=== PATIENT | female | born 1965 | race Caucasian/White ===

== ENCOUNTER 2016-07-09 17:56 | Emergency (ER) | payer MEDICARE ==
--- NOTE | 2016-07-10 12:15 | ER ---
ADMIT: 07/09/2016 RM/LOC: ER [facility] MR#: [id number] [address] ANASTASIYA DARNELL [address] [place] [id number] Emergency Room Report SEX: F AGE: 51 : 1965 DATE: 07/09/2016 A 51-year-old female, slipped and fell landing on her outstretched left hand, brought to the Emergency Department by squad with left wrist pain. See T- sheet for history and physical. X-rays revealed an impacted fracture of the distal left radius. At the time of this dictation, PA is going to reduce the fracture by placing in traps. She will be discharged with a prescription for [place] and Zofran, instructed to follow up with Dr. Dumont this coming week. The fracture will also be splinted per the PA. Samir Barreto MD/ leslie JOB #: [id number] CC: Samir Barreto MD, Attending Physician Hakeem Bahena MD, Family Physician
--- NOTE | 2016-07-20 17:46 | ER ---
ADMIT: 07/09/2016 RM/LOC: ER [facility] MR#: [id number] [address] [address] ANASTASIYA DARNELL [address] [place] [id number] Emergency Room Report SEX: F AGE: 51 : 1965 DATE: 07/09/2016 ADDENDUM: This patient was initially seen by Dr. Barreto and turned over to me. She fell and had a fracture of her left radius and ulna. I placed it in traps after doing a hematoma block with bupivacaine with epi. I had good alignment. She was placed in an OCL splint. However, during reducing her left wrist, she started to note that she was having pain in her right shoulder. X-ray of her shoulder showed a humeral head fracture. She was also put in a sling in both the right and left upper extremities. I wrote a prescription for Percocet and Zofran, and she is to follow up with Dr. Miller on Tuesday. Please see my T-sheet. GUMARO Vines / Samir Barreto MD / dignal JOB #: [id number] CC: Samir Barreto MD, Attending Physician Hakeem Bahena MD, Family Physician
== END 2016-07-09 20:55 | disposition home or self-care (01) ==
LOC: ER 17:56
PROC: 0PSLXZZ Reposition Left Ulna, External Approach (ICD-10-PCS; principal; 2016-07-09)
PROC: 0PSJXZZ Reposition Left Radius, External Approach (ICD-10-PCS; principal; 2016-07-09)
DX: S52.502A Unspecified fracture of the lower end of left radius, initial encounter for closed fracture (principal); S52.602A Unspecified fracture of lower end of left ulna, initial encounter for closed fracture; I10 Essential (primary) hypertension; F41.9 Anxiety disorder, unspecified; Z79.899 Other long term (current) drug therapy; W01.0XXA Fall on same level from slipping, tripping and stumbling without subsequent striking against object, initial encounter; Y92.009 Unspecified place in unspecified non-institutional (private) residence as the place of occurrence of the external cause

== ENCOUNTER 2016-07-10 11:13 | Emergency (ER) | payer MEDICARE ==
--- NOTE | 2016-07-31 08:03 | ER ---
ADMIT: 07/10/2016 RM/LOC: ER [facility] MR#: [id number] [address] [address] ANASTASIYA DARNELL [address] [place] [phone] Emergency Room Report SEX: F AGE: 51 : 1965 DATE: 07/10/2016 ADDENDUM: CHIEF COMPLAINT: Urinary hesitancy and retention. HISTORY OF PRESENT ILLNESS: This is a 51-year-old, who is having these symptoms going on for the last couple months. She is worried about her kidney function, so she came into ER. Urine and BMP were collected. Urine is normal, no signs of infection. This was done by a UA cath. Her BMP was normal except for potassium slightly up at 3.6. Her bicarb is slightly low at 21. I did encourage that she needs to really push fluids, try to keep herself hydrated. CLINICAL IMPRESSION: Urinary retention/hesitancy. DISPOSITION: Stable at discharge and will follow up as needed if symptoms continue. GUMARO Lawson / Samir Barreto MD / dignal JOB #: [id number] CC: Samir Barreto MD, Attending Physician
== END 2016-07-10 13:15 | disposition home or self-care (01) ==
LOC: ER 11:13
DX: R33.9 Retention of urine, unspecified (principal); R39.11 Hesitancy of micturition; I10 Essential (primary) hypertension; F41.9 Anxiety disorder, unspecified; F32.9 Major depressive disorder, single episode, unspecified; Z98.890 Other specified postprocedural states; Z79.899 Other long term (current) drug therapy

== ENCOUNTER 2016-07-23 03:14 | Emergency (ER) | payer MEDICARE ==
--- NOTE | 2016-07-28 02:33 | ER ---
ADMIT: 07/23/2016 RM/LOC: ER [facility] MR#: [id number] [address] ANASTASIYA DARNELL [address] [place] [address] Emergency Room Report SEX: F AGE: 51 : 1965 DATE: 07/23/2016 TIME: 0314 hours. Please refer to my T-sheet for complete H and P. HISTORY OF PRESENT ILLNESS: The patient is a 51-year-old, who just had surgery yesterday by Dr. Varma. She comes in now with a sore throat, it feels dry. She also lost her right shoulder sling and she has been taken for a shoulder injury at the same time. Rates it 08/16. Comes in for evaluation. PHYSICAL EXAMINATION: VITAL SIGNS: Stable. Afebrile. HEENT: Her throat is slightly dry. LUNGS: Clear. HEART: Regular. ABDOMEN: Soft. EXTREMITIES: Her left arm is postop right shoulder pain with range of motion, but she has a known injury there. EMERGENCY DEPARTMENT COURSE: We gave her a sling for her right arm. I advised throat lozenges and hard candies. ASSESSMENT: 1. Dry throat, most likely a postop symptom. 2. Lost sling. PLAN: We gave her a sling here, throat lozenges, hard candy. Follow up with Dr. Varma. Ric Rees MD/ leslie JOB #: [id number] CC: Ric Rees MD, Attending Physician
== END 2016-07-23 03:40 | disposition home or self-care (01) ==
LOC: ER 03:14
DX: J39.2 Other diseases of pharynx (principal); Z98.890 Other specified postprocedural states

== ENCOUNTER 2016-07-23 07:09 | Emergency (ER) | payer MEDICARE ==
--- NOTE | 2016-07-31 08:03 | ER ---
ADMIT: 07/23/2016 RM/LOC: ER [facility] MR#: [id number] [address] [address] ANASTASIYA DARNELL [address] [place] [address] Emergency Room Report SEX: F AGE: 51 : 1965 DATE: 07/23/2016 A 51-year-old female, returns yet again on the same day, has a prior ER visit. She is now concerned that the dressing is too tight on her forearm because her arm hurts. However, she states she has not been taking her pain medicine because she "forgets." See T-sheet for history and physical. Patient is diagnosed with forearm pain. Instructed to follow up with Dr. Varma and use her pain medication as prescribed. Samir Barreto MD/ leslie JOB #: [id number] CC: Samir Barreto MD, Attending Physician UNKNOWN, Family Physician
== END 2016-07-23 07:55 | disposition home or self-care (01) ==
LOC: ER 07:09
DX: M79.632 Pain in left forearm (principal); I10 Essential (primary) hypertension; F31.9 Bipolar disorder, unspecified; F20.9 Schizophrenia, unspecified; Z79.899 Other long term (current) drug therapy

== ENCOUNTER 2016-07-27 23:14 | Emergency (ER) | payer MEDICARE ==
--- NOTE | 2016-07-29 00:39 | ER ---
ADMIT: 07/27/2016 RM/LOC: ER [facility] MR#: [id number] [address] [address] ANASTASIYA DARNELL [address] [place] [address] Emergency Room Report SEX: F AGE: 51 : 1965 DATE: 07/27/2016 TIME: 2314 hours. Refer to my T-sheet for complete H and P. HISTORY OF PRESENT ILLNESS: Briefly, the patient is a 51-year-old, who comes in with constipated, some abdominal cramping, and question urine infection. She has actually been seen here quite frequently. Recently, she had a left wrist surgery. She has been on narcotics, which has made her constipated, but she has also been going and urinating more than usual. PHYSICAL EXAMINATION: VITAL SIGNS: Blood pressure 112/74, pulse 122, respirations 18, temp 97.8, saturating 98%. GENERAL: No acute distress. HEENT: Grossly normal. LUNGS: Clear. HEART: Regular, slightly tachy. ABDOMEN: Soft, really nontender. SKIN: No rash. EMERGENCY DEPARTMENT COURSE: CBC was normal except hemoglobin 10.6. Chemistries normal except CO2 of 21. UA showed 5204 white cells, 3+ leukocyte esterase, and positive nitrite. I gave her a liter of normal saline bolus, Reglan 10 mg IV, Rocephin 1 g IV, and Cipro 500 p.o., she wanted to go home. She felt comfortable going home. I actually talked to her and the person in there with her, they wanted to take her home. ASSESSMENT: 1. Acute cystitis. 2. Dehydration. 3. Constipation. 4. Status post wrist surgery. PLAN: Cipro 500 mg b.i.d. for 7 days, Reglan 10 mg t.i.d. p.r.n. Stop the narcotics, that she uses Tylenol. Return if worse and see Dr. Hartman this week. Ric Rees MD/ leslie JOB #: [id number] CC: Ric Rees MD, Attending Physician Ruy Hartman MD, Family Physician
== END 2016-07-28 02:01 | disposition home or self-care (01) ==
LOC: ER 23:14
DX: K59.00 Constipation, unspecified (principal); E86.0 Dehydration; N30.00 Acute cystitis without hematuria; I10 Essential (primary) hypertension; Z79.899 Other long term (current) drug therapy

== ENCOUNTER → 2016-08-25 | Outpatient (CLI) | payer MEDICARE | END | disposition home or self-care (01) | LOC: RAD.S 08-16 11:06 | DX: Z12.31 Encounter for screening mammogram for malignant neoplasm of breast (principal); N64.89 Other specified disorders of breast; M81.0 Age-related osteoporosis without current pathological fracture; M85.89 Other specified disorders of bone density and structure, multiple sites ==

== ENCOUNTER → 2016-08-31 | Outpatient (CLI) | payer MEDICARE | END | disposition home or self-care (01) | DX: R92.8 Other abnormal and inconclusive findings on diagnostic imaging of breast (principal) ==